=== PATIENT | female | born 1975 | race Caucasian/White ===

== ENCOUNTER 2018-06-26 20:31 | Emergency (ER) | payer BC ==
[2018-06-26] MEDS ORDERED: METHYLPREDNISOLONE PF 125MG/VIAL IM ONE (20:53)
[2018-06-26] MEDS ORDERED: CEPHALEXIN 500 MG CAPSULE PO STA ×2 (20:54→21:02)
--- NOTE | 2018-06-26 20:54 | Emergency Department Record ---
History of Present Illness - General Chief complaint: Rash Stated complaint: L LEG RASH Time Seen by Provider: 06/26/18 20:41 Source: Patient Mode of Arrival: Ambulatory Limitations: No limitations - History of Present Illness Initial comments: The patient is here due to a L knee rash for one day. She was in her house yesterday and felt a stinging sensation to the lateral L knee. She did not see any insect but it felt like and insect sting. Now the area has become very itchy and red and slightly swollen. She has had a L knee replacement and is concerned it could get infected. MD complaint: Insect bite/sting, Rash Onset/Timin -: Days(s) Patient Tetanus UTD (within 5 yrs): Yes Severity: Mild Severity scale (1-10): 7 Quality: Other Consistency: Constant Improves with: Cold therapy Worsens with: None Context: None Associated symptoms: Denies other symptoms Treatments Prior to Arrival: Benadryl, Corticosteroid, NSAID - Related Data Home Medications Medication Instructions Recorded Confirmed Last Taken Cholecalciferol (Vitamin D3) 6,000 unit PO DAILY 06/26/18 06/26/18 06/26/18 [Vitamin D3] Sertraline HCl [Zoloft] 100 mg PO DAILY 06/26/18 06/26/18 06/25/18 Previous Rx's Medication Instructions Recorded Cephalexin [Keflex] 500 mg PO QID #28 cap 06/26/18 Prednisone [Prednisone 20Mg] 40 mg PO DAILY #10 tab 06/26/18 Allergies Allergy/AdvReac Type Severity Reaction Status Date / Time No Known Drug Allergies Allergy Verified 06/26/18 20:38 Travel Screening - Travel/Exposure Within Last 30 Days Have you traveled within the last 30 days?: No - Travel/Exposure Within Last Year Have you traveled outside the [place] in the last year?: No - Additonal Travel Details Have you been exposed to anyone with a communicable illness?: No - Travel Symptoms Symptom Screening: None Review of Systems Constitutional: Denies: Chills, Fever, Malaise Eyes: Denies: Eye discharge ENT: Denies: Congestion Respiratory: Denies: Cough, Dyspnea Past Medical History - SOCIAL HISTORY Smoking Status: Never smoker Alcohol Use: None Drug Use: None - RESPIRATORY Hx Respiratory Disorders: Yes Hx Asthma: Yes (exercise induced) - CARDIOVASCULAR Hx Cardio Disorders: No - NEURO Hx Neuro Disorders: No - GI Hx GI Disorders: No - Hx Genitourinary Disorders: No - ENDOCRINE Hx Endocrine Disorders: No - MUSCULOSKELETAL Hx Musculoskeletal Disorders: No - PSYCH Hx Psych Problems: No - HEMATOLOGY/ONCOLOGY Hx Hematology/Oncology Disorders: Yes Hx Cancer: Yes (bone) Hx Chemotherapy: Yes (1991) Hx Radiation Therapy: No Family Medical History Any Significant Family History?: No Physical Exam - General General Appearance: Alert, Oriented x3, Cooperative, No acute distress - Head Head exam: Atraumatic, Normocephalic, Normal inspection - Eye Eye exam: Normal appearance - Extremities Extremities exam: Full ROM (There is full ROM of the L knee with no significant pain or discomfort.), Normal capillary refill, Tenderness (There is mild tenderness at the center of the rash area.), Other (The L lower leg is NVI.). negative: Normal inspection (There is erythema to the L lateral knee area. There does appear to be an area near the center that appears to be an insect sting with a very small blister present. ), Joint swelling, Pedal edema Image of Full Body: 1 - Area of erythema and slight edema. Course Vital Signs 06/26/18 20:36 Temperature 98.1 F Pulse Rate [ 75 Pulse Ox Probe] Respiratory 16 Rate Blood Pressure 118/73 [Left Arm] Pulse Ox 99 - Reevaluation(s) Reevaluation #1: I did explain to the patient that it appears she has an insect sting to the L knee area which is causing the issues and pruritis. We will treat for an allergic rxn and also cover her with Keflex for any possible infection although it is VERY unlikely. We will place the patient on Prednisone starting tomorrow. 06/26/18 20:59 Disposition Disposition: Discharge Clinical Impression: Allergic reaction to bee sting Disposition: Home, Self-Care Condition: (2) Stable Instructions: General Allergic Reaction (ED) Additional Instructions: Please continue the Benadryl 4 times a day and continue the Prednisone tomorrow along with the Keflex. Please return to the ER in 12 hours for any worsening symptoms, pain, or fever. Prescriptions: Cephalexin [Keflex] 500 mg PO QID #28 cap Prednisone [Prednisone 20Mg] 40 mg PO DAILY #10 tab Forms: Patient Portal Access Time of Disposition: 21:01 Quality - Quality Measures Quality Measures: N/A - Blood Pressure Screening View Details: Yes Does Patient Have Any of the Following: No Blood Pressure Classification: Normal BP Reading Systolic Measurement: 118 Diastolic Measurement: 73 Screening for High Blood Pressure: < Normal BP, F/U Not Required > [G8783]
== END 2018-06-26 21:13 | disposition home or self-care (01) ==
LOC: ER 20:31
DX: T63.441A Toxic effect of venom of bees, accidental (unintentional), initial encounter (principal); R21 Rash and other nonspecific skin eruption
CPT/HCPCS: 96372; 99283; J2930